=== PATIENT | female | born 1995 | race Caucasian/White ===

== ENCOUNTER 2017-10-29 02:42 | Inpatient (IN) | payer OTHER ==
[2017-10-29 03:42] VITALS: BMI 22.6
[2017-10-29] MEDS ORDERED: Ibuprofen 800 MG TAB PO PRN (03:43)
[2017-10-29] MEDS ORDERED: Butorphanol Tartrate 1 MG/ML VIAL SLOW IVP PRN (03:43)
[2017-10-29] MEDS ORDERED: HYDROcodone/Acetaminophen 5/325 mg Tablet PO PRN ×2 (03:43)
[2017-10-29] MEDS ORDERED: NS / Oxytocin 40 units/1000ml 1,000 ML IV PRN (03:43)
[2017-10-29] MEDS ORDERED: Lidocaine 1% (PF) 30 ML VIAL SC PRN (03:43)
[2017-10-29] MEDS ORDERED: Ondansetron HCl/PF 4 MG/2 ML Vial IVP PRN ×3 (03:43→14:28)
[2017-10-29 03:56] LABS: Hemoglobin 11.3 g/dL (12.0-16.0); Mean Corpuscular HGB CONC 33.9 g/dL (32.0-36.0); Mean Corpuscular Hemoglobin 32.8 pg (27.0-31.0); Mean Corpuscular Volume 96.6 fl (81.0-99.0); Mean Platelet Volume 8.7 fL (7.4-10.4); Platelet Count 233 thou/uL (130-400); Red Blood Cell (RBC) Count 3.46 mill/uL (4.20-5.40); White Blood Cell (WBC) Count 11.5 thou/uL (4.8-10.8)
[2017-10-29] MEDS ORDERED: Bupivacaine 0.5% 20 ML, fentaNYL Citrate/PF 400 MCG in Sodium Chloride 0.9% 72 ML EPIDURAL SCH (04:00)
[2017-10-29] MEDS ORDERED: Lactated Ringer's 1,000 ML IV SCH (04:00)
[2017-10-29] MEDS ORDERED: DISCONTINUE ALL PREVIOUS NARCOTICS FS SCH (04:00)
[2017-10-29 04:32] LABS: HBSAg Index 0.24 S/CO (0-0.99); Hep B Surf Ag Non-Reactive S/CO (NonReactive)
[2017-10-29] MEDS ORDERED: ePHEDrine/0.9% NaCl/PF SYRINGE 50 mg/10 ml SLOW IVP PRN (04:54)
[2017-10-29] MEDS ORDERED: Eucerin (Mineral Oil/Petrolatum,White) 30 gm Jar TOP PRN (04:54)
[2017-10-29] MEDS ORDERED: Acetaminophen 325 MG TAB PO PRN (04:54)
[2017-10-29] MEDS ORDERED: diphenhydrAMINE 50 MG/ML VIAL IVP PRN (04:54)
[2017-10-29] MEDS ORDERED: Naloxone HCl 0.4 mg/ml Vial IVP PRN ×2 (04:54)
[2017-10-29] MEDS ORDERED: Promethazine HCl 25 MG/ML VIAL IM PRN ×2 (04:54→14:28)
[2017-10-29] MEDS ORDERED: Lactated Ringer's 500 ML IV PRN (04:54)
[2017-10-29] MEDS ORDERED: Communication Order-Pharmacy FS SCH (05:00)
[2017-10-29] MEDS: Fentanyl 4mcg/Marcaine 0.1% Cassette 100 ML EPIDURAL SCH ×2 (05:25→12:04)
[2017-10-29] MEDS: Lactated Ringer's 1,000 ML IV SCH ×2 (05:27→06:38)
[2017-10-29 05:53] LABS: Syphilis Antibody Nonreactive (Nonreactive); Syphilis Antibody Index 0.04 S/CO (<1.00 Non-Reactive)
[2017-10-29] MEDS ORDERED: NS w/ Oxytocin 10 units 500 ML IV SCH (06:45)
[2017-10-29] MEDS ORDERED: Fentanyl 100 MCG/2 ML VIAL ONE (10:23)
[2017-10-29] MEDS ORDERED: Bupivacaine HCl 0.5%/Epinephrine 1:200,000/PF 30 ml Vial ONE (11:11)
--- NOTE | 2017-10-29 11:16 | PDOC.LDPN ---
Labor & Delivery Progress Note - Subjective Subjective: comfortable - Objective Vital signs reviewed and normal: yes General: NAD, resting Uterine fundus: non tender FHT: category 1 (135, mod variability, + accels, no decels) [place] contractions every: 3 mins Plan: continue plan of care
[2017-10-29] MEDS: Misoprostol 200 MCG TAB ONE ×3 (13:50→13:54)
[2017-10-29] MEDS ORDERED: diphenhydrAMINE 25 MG CAP PO PRN (14:28)
[2017-10-29] MEDS ORDERED: Measles/Mumps/Rubella 10 MCG/0.5 ML VIAL SC ONE (14:28)
[2017-10-29] MEDS ORDERED: Zolpidem Tartrate 5 MG TAB PO PRN (14:28)
[2017-10-29] MEDS ORDERED: Misoprostol 200 MCG TAB VAG PRN (14:28)
[2017-10-29] MEDS ORDERED: Varicella virus, LIVE 0.5 ML VIAL SC ONE (14:28)
[2017-10-29] MEDS ORDERED: Milk Of Magnesia 30 ML UDCUP PO PRN (14:28)
[2017-10-29] MEDS ORDERED: Adacel (T-DAP) 0.5 ML VIAL IM ONE (14:28)
[2017-10-29] MEDS ORDERED: Methylergonovine 0.2 MG/ML VIAL IM PRN (14:28)
[2017-10-29] MEDS ORDERED: Benzocaine/Menthol 20-0.5% 60 ML CAN TOP PRN (14:28)
[2017-10-29] MEDS ORDERED: Lanolin Ointment 7 GM TUBE TOP PRN (14:28)
[2017-10-29] MEDS ORDERED: Bisacodyl 10 MG SUPP PR PRN (14:28)
[2017-10-29] MEDS ORDERED: Preparation H Ointment 28 GM TUBE PR PRN (14:28)
--- NOTE | 2017-10-29 14:28 | PDOC.OPDEL ---
OB Operative/Delivery Note Delivery Dr/Surgeon: Ghazal Pre-Delivery Diagnosis: ruptured membrane Procedure/Post Delivery Dx: spontaneous vaginal delivery Weeks gestation: 39 Anesthesia: epidural - Findings A Sex: male Weight: 7 lb 1 oz - 1 min: 9 - 5 min: 9 - Additional Findings/Plan Placenta delivered: spontaneous Repaired Obstetrical Laceration: 2nd degree (with R periurethral) Estimated blood loss: 400 Post delivery plan: recovery in LICU
[2017-10-29] MEDS ORDERED: NS / Oxytocin 40 units/1000ml 1,000 ML IV SCH (14:30)
[2017-10-29] MEDS: Ibuprofen 800 MG TAB PO SCH ×2 (15:25→23:02)
[2017-10-29] MEDS: Ferrous Sulfate 325 MG TAB PO SCH (17:41)
[2017-10-29] MEDS: HYDROcodone/Acetaminophen 5/325 mg Tablet PO PRN (19:29)
[2017-10-29] MEDS: Docusate Calcium (SURFAK) 240 MG CAP PO SCH (22:05)
[2017-10-30] MEDS: Ibuprofen 800 MG TAB PO SCH ×3 (06:15→21:47)
--- NOTE | 2017-10-30 07:32 | PDOC.PP ---
Post Progress Note Post Day #: 1 Subjective: Doing well without complaints this morning. PO intake tolerated: yes Flatus: yes Ambulation: yes Vital Signs (12 hours) Temp Pulse Resp BP 10/30/17 04:35 99.1 F 76 20 10/30/17 04:30 99.1 F 76 20 111/62 10/29/17 23:00 98.4 F 70 16 112/65 Weight Weight 124 lb - Physical Examination General: NAD Respiratory: non-labored breathing Abdominal: lochia (normal), no distention, appropriately TTP Fundus firm & at: U-3 Extremities: negative homans (B) Neurological: no gross focal deficits Psychiatric: A&Ox3, normal affect Result Diagrams: 10/29/17 03:36 Additional Labs: Post Labs Blood Type O POSITIVE 10/29/17 03:36 Hep Bs Antigen Non-Reactive S/CO (NonReactive) 10/29/17 03:36 (1) (spontaneous vaginal delivery) Code(s): O80 - ENCOUNTER FOR FULL-TERM UNCOMPLICATED DELIVERY Status: Acute - Assessment/Plan Continue routine management. Anticipate d/c tomorrow.
[2017-10-30] MEDS: Docusate Calcium (SURFAK) 240 MG CAP PO SCH ×2 (07:42→21:47)
[2017-10-30] MEDS: Ferrous Sulfate 325 MG TAB PO SCH ×2 (07:42→17:46)
[2017-10-30] MEDS: HYDROcodone/Acetaminophen 5/325 mg Tablet PO PRN ×3 (07:42→21:56)
[2017-10-30 12:26] LABS: Chlamydia by PCR Not Detected (NotDetected); GC by PCR Not Detected (NotDetected)
[2017-10-30 22:33] VITALS: TEMP 98.9
--- NOTE | 2017-10-31 02:02 | PDOC.PP ---
Post Progress Note Post Day #: 2 Subjective: Doing well. No new issues. PO intake tolerated: yes Flatus: yes Ambulation: yes Vital Signs (12 hours) Temp Pulse Resp BP 10/30/17 20:00 98.9 F 80 16 118/57 L 10/30/17 17:02 98.5 F 88 20 Weight Weight 124 lb - Physical Examination General: NAD Cardiovascular: no m/r/g Respiratory: clear to auscultation bilaterally Abdominal: + bowel sounds, lochia, no distention, appropriately TTP Extremities: negative homans (B) Neurological: no gross focal deficits Psychiatric: A&Ox3, normal affect Result Diagrams: 10/29/17 03:36 Additional Labs: Post Labs Blood Type O POSITIVE 10/29/17 03:36 Hep Bs Antigen Non-Reactive S/CO (NonReactive) 10/29/17 03:36 (1) (spontaneous vaginal delivery) Code(s): O80 - ENCOUNTER FOR FULL-TERM UNCOMPLICATED DELIVERY Status: Acute - Assessment/Plan Plan: Patient seen at bedside. Feels well. OK for discharge to home. She will drive back to [place] today. I recommended not to stay immoboile in the car for longer than 1.5 hours. Patient aware. Motrin for home meds prn. Noon discharge today Wednesday.
--- NOTE | 2017-10-31 02:03 | PDOC.EVN ---
Event Note - Event Note Event Note: DISCHARGE NOTE: Please see completed discharge summary in chart. Admit: 10/29/17 Discharge: 10/31/17 Procedure: Routine care
[2017-10-31] MEDS: HYDROcodone/Acetaminophen 5/325 mg Tablet PO PRN ×2 (03:44→14:39)
[2017-10-31] MEDS: Ibuprofen 800 MG TAB PO SCH ×2 (05:46→13:05)
[2017-10-31 09:23] VITALS: BP 108/68
[2017-10-31] MEDS: Docusate Calcium (SURFAK) 240 MG CAP PO SCH (09:44)
[2017-10-31] MEDS: Ferrous Sulfate 325 MG TAB PO SCH (09:45)
== END 2017-10-31 14:55 | disposition home or self-care (01) | DRG 775 ==
LOC: LAB 02:42 → L&D 03:18 → 3SW 16:44
PROVIDERS: ADMIT Obstetrics & Gynecology; ATTEND Obstetrics & Gynecology
PROC: 0KQM0ZZ Repair Perineum Muscle, Open Approach (ICD-10-PCS; principal; 2017-10-29)
PROC: 10E0XZZ Delivery of Products of Conception, External Approach (ICD-10-PCS; 2017-10-29)
DX: O70.1 Second degree perineal laceration during delivery (principal); Z37.0 Single live birth; Z3A.39 39 weeks gestation of pregnancy
CPT/HCPCS: 36415; 51702; 85027; 86780; 86850; 86900; 86901; 87340; 87491; 87591; 99285; J0670; J2001; J2405; J2550; J3010; J3490; J7050